=== PATIENT | male | born 1970 | race Caucasian/White ===

== ENCOUNTER 2021-07-18 14:51 | Emergency (ER) | payer SELFPAY ==
[~2021-07-18] VITALS: Ht 175.3 cm; Wt 79.2 kg
[2021-07-18 15:02] VITALS: BP 105/93
[2021-07-18] MEDS ORDERED: DEXAMETHASONE 4 MG TABLET PO ONE (15:15)
--- NOTE | 2021-07-18 15:52 | PHYS DOC ---
Past History Past Medical History: No Pertinent History Past Surgical History: No Surgical History Smoking: Cigarettes (30 pack year history) Additional Smoking Information: 2 ppd Alcohol Use: None Drug Use: None General Adult EDM: Chief Complaint: SHORTNESS OF BREATH HPI: HPI: Mr. Pickering is a 50 year old male who presents to the ED with shortness of breath. Patient states the shortness of breath first began June 02 and improved but in the past two weeks the symptoms worsened and currently he is unable to carry daily activities. In addition to aforementioned symptoms patient is endorsing loss of taste, productive cough which worsens when laying down. Due to his difficulty breathing, patient is endorsing muscle soreness due to accessory muscle use. He has tried albuterol inhalers without any symptoms improvement. Patient denies chest pain but endorses generalized weakness. Patient is not vaccinated for COVID Review of Systems: Review of Systems: Constitutional: Denies fever or chills Eyes: Denies redness or eye pain HENT: Endorses nasal congestion or sore throat Respiratory: Endorses productive cough or shortness of breath Cardiovascular: Denies chest pain or palpitations GI: Denies abdominal pain, nausea, or vomiting : Denies dysuria or hematuria Musculoskeletal: Denies back pain or joint pain, endorses accessory muscle use Integument: Denies rash or skin lesions Neurologic: Denies headache, focal weakness or sensory changes Complete systems were reviewed and found to be within normal limits, except as documented in this note. Current Medications: Current Meds: Current Medications Medications (Trade) Dose Ordered Sig/Akin Start Time Stop Time Status Last Admin Dose Admin Dexamethasone (Decadron) 10 mg 1X ONCE 07/18/21 15:15 07/18/21 15:28 DC Allergies: Allergies: Allergies Coded Allergies Type Severity Reaction Last Updated Verified No Known Drug Allergies 07/18/21 No Physical Exam: PE: Constitutional: Well developed, well nourished, no acute distress, non-toxic appearance HENT: Normocephalic, atraumatic Eyes: PERRL, EOMI, conjunctiva normal, no discharge Neck: Normal range of motion, no tenderness, supple Lungs & Thorax: No respiratory distress, equal chest rise and fall, CTAB Abdomen: Soft, no tenderness Skin: Warm, dry, no erythema, no rash Back: No tenderness, no CVA tenderness Extremities: No tenderness, ROM intact, no edema Neurologic: Alert and oriented X 3, normal motor function, normal sensory function, no focal deficits noted Psychologic: Affect normal, judgment normal Current Patient Data: Vital Signs: Vital Signs Date Time Temp Pulse Resp B/P (MAP) Pulse Ox O2 Delivery O2 Flow Rate FiO2 07/18/21 15:02 98.2 110 22 105/93 (97) 99 Room Air EKG: EKG: [] Radiology/Procedures: Radiology/Procedures: [] Impressions: PROCEDURE: CHEST AP ONLY EXAM: XR CHEST 1V 07/18/2021 3:12 PM CLINICAL INDICATION: Cough, shortness of air, Covid person under investigation COMPARISON: None TECHNIQUE: AP upright view of the chest FINDINGS: The heart and mediastinum are normal. Lungs are well-expanded and clear. No consolidation, pleural effusion, or pneumothorax. Pulmonary vascularity is normal. The thoracic skeleton is intact. IMPRESSION: No acute cardiopulmonary abnormality. Electronically signed by: Susan Conn MD (07/18/2021 3:58 PM) [id number] Heart Score: C/O Chest Pain: N/A Course & Med Decision Making: Course & Med Decision Making Mr. Pickering is a 50 year old male who presents to the ED with shortness of breath. Upon further examination, patient seems to be endorsing symptoms of COVID but his current symptoms can also be attributed due to his extensive smoking history. A chest X-ray, COVID and Influenza rapid testing were ordered. Rapid COVID and Influenza were negative while chest X-ray did not display any acute cardiopulmonary abnormality. Ultimately patient was discharged on dexamethasone. Patient stable for discharge with outpatient follow-up with PCP. Discussed findings and plan with patient, who acknowledges understanding and agreement. Pertinent Labs and Imaging studies reviewed. (See chart for details) Dragon Disclaimer: Simmr Disclaimer: This electronic medical record was generated, in whole or in part, using a voice recognition dictation system. Departure Departure: Impression: Primary Impression: Bronchitis Disposition: HOME / SELF CARE / HOMELESS Condition: STABLE Referrals: PCP,SVETA (PCP) Patient Instructions: Acute Bronchitis, [id number] Additional Instructions: Use spacer with albuterol inhaler as directed. Scripts Albuterol Sulfate (PROAIR HFA INHALER) 8.5 Gm Hfa.aer.ad 2 PUFF IH PRN Q4-6HRS PRN for wheezing, #1 INHALER 0 Refills Prov: NAVIN PEREIRA DO 07/18/21 Prednisone (PREDNISONE) 20 Mg Tablet 2 TAB PO DAILY for bronchitis for 4 Days, #8 TAB Prov: NAVIN PEREIRA DO 07/18/21 NAVIN PEREIRA DO Jul 18, 2021 15:52
--- NOTE | 2021-07-18 16:00 | RAD ---
EXAM: XR CHEST 1V 07/18/2021 3:12 PM CLINICAL INDICATION: Cough, shortness of air, Covid person under investigation COMPARISON: None TECHNIQUE: AP upright view of the chest FINDINGS: The heart and mediastinum are normal. Lungs are well-expanded and clear. No consolidatio n, pleural effusion, or pneumothorax. Pulmonary vascularity is normal. The thoracic skeleton is int act. IMPRESSION: No acute cardiopulmonary abnormality. Electronically signed by: Susan Conn MD (07/18/2021 3:58 PM) [id number]
[2021-07-18 16:06] LABS: INFLUENZA A PATIENT NEGATIVE (NEGATIVE); INFLUENZA B PATIENT NEGATIVE (NEGATIVE)
[2021-07-18] MEDS ORDERED: PRED20TA PO (16:21)
[2021-07-18] MEDS ORDERED: ALBU2.5V8 IH (16:21)
== END 2021-07-18 16:25 | disposition home or self-care (01) ==
LOC: ER 14:51
DX: J40 Bronchitis, not specified as acute or chronic (principal)
CPT/HCPCS: 71045; 87428; 99284; J8540